=== PATIENT | female | born 1940 | race Caucasian/White ===

== ENCOUNTER 2017-05-08 16:28 | Inpatient (IN) ==
[2017-05-08] MEDS ORDERED: SODIUM CHLORIDE 0.9% 1,000 ML IV STA (16:50)
--- NOTE | 2017-05-08 17:30 | Emergency Department Note ---
Arrival - Arrival Chief Complaint: Abdominal / Flank Pain Stated Complaint: NAUSEATED,DIZZINESS,FEVER ED Nursing Triage Note: C/o N/V-onset last week. Also c/o generalized abd pain. Family reports that patient has had a fever for the past 2 days. Mode of Arrival: Wheelchair Limitations: No Limitations Source: Patient, Family, RN Notes Reviewed Time Seen by Provider: 05/08/17 17:08 - History of Present Illness HPI Narrative: The patient complains of diffuse abdominal pain and nausea which started around 10 days ago, after a fall. She fractured a vertebrae and had kyphoplasty for this yesterday. She continues to have this constant, cramping, diffuse abdominal pain. Yesterday she also developed some vomiting and has vomited 6-7 times. She has also had decreased food and fluid intake. She had a temperature of 100 yesterday and today. She notes that food causes increased burning and nausea. She has had similar symptoms in the past with diverticulitis. She has been having some constipation lately. Her last bowel movement was last night after taking a laxative. She denies diarrhea, dysuria, hematuria. She complains of a severe headache today. Date of Last Menstrual Period: hysterectomy Allergies/Adverse Reactions: Allergies Allergy/AdvReac Type Severity Reaction Status Date / Time Penicillins Allergy Intermediate Rash/Nausea Verified 06/09/16 15:34 Home Medications: Home Medications Medication Instructions Recorded Confirmed Type Citalopram [CeleXA] 40 mg PO DAILY 05/08/17 05/08/17 History Cyclobenzaprine [Flexeril] 10 mg PO BEDTIME PRN 05/08/17 05/08/17 History Hydrocodone/Acetaminophen [[place] 1 each PO TID PRN 05/08/17 05/08/17 History 10-325 Tablet] Levothyroxine Tab [Synthroid Tab] 25 mcg PO DAILY@0700 05/08/17 05/08/17 History Losartan Potassium [Cozaar] 100 mg PO QAM 05/08/17 05/08/17 History Meloxicam [Mobic] 7.5 mg PO DAILY 05/08/17 05/08/17 History Omeprazole 40 mg PO DAILY 05/08/17 05/08/17 History amLODIPine [Norvasc] 5 mg PO DAILY 05/08/17 05/08/17 History clonazePAM [Klonopin] 1 mg PO DAILY PRN 05/08/17 05/08/17 History Review of System - Review of System 12 point system: reviewed and no additional remarkable complaints except as stated - Review of System Constitutional: Present: fever, weakness Head/Ears/Nose/Throat: Absent: nasal drainage, sore throat Respiratory: Absent: cough, respiratory distress, wheezing Cardiovascular: Absent: chest pain Gastrointestinal: Present: abdominal pain, nausea, vomiting, constipation. Absent: diarrhea, hematemesis, melena, hematochezia Genitourinary female: Absent: dysuria, frequency, hematuria Musculoskeletal: Present: back pain Medical,Surgical,& Family Hx - Medical History Cardio: History of: Hypertension Psychological: History of: Anxiety Disorders, Depression HEENT: History of: Dental Problems (PARTIAL) Endocrine: History of: Thyroid Disorder Rheumatology: History of;: Rheumatological Problems Genitourinary: History of: Bladder Problem (FEELS AT TIMES DOES NOT EMPTY BLADDER) Gastrointestinal: History of: Diverticulitis/ Diverticulosis Musculoskeletal: History of: Back/Neck Problems, Osteoporosis Reproductive: History of: Endometriosis Other: History of: Anaphylaxis (IVP DYE -) - Surgical History HEENT Surgeries: Surgical HX of: Tonsilectomy & Adenoidectomy Abdominal Surgeries: Surgical HX of: Colonoscopy Reproductive Surgeries: Surgical HX of;: Breast Surgery (IMPLANTS), Hysterectomy Orthopedic Surgeries: Surgical HX of;: Orthopedic Surgery (BACK SURGERY NECK SURGERY X2 R LEG) - Family History Family History: Reports;: Family Diabetes (MOM), Family Hypertension (BROTHER) - Social History Smoking Status: Never smoker Frequency of Alcohol Use: None Type of Drug Use: None Exam Physical Examination: GENERAL: Alert. No acute distress. HEENT: Normocephalic and atraumatic. There is no nasal drainage. No pharyngeal erythema or exudate. NECK: Normal inspection. Supple. No lymphadenopathy or meningismus. LUNGS: No respiratory distress. Clear to auscultation bilaterally, no wheezes, rales or rhonchi. HEART: Regular rate and rhythm. ABDOMEN: Soft, nondistended with normal bowel sounds. Mild diffuse abdominal tenderness, more pronounced in the right lower quadrant. No guarding or rebound. BACK: Normal inspection. SKIN: Color normal. Warm and dry. EXTREMITIES: Nontender. Normal range of motion. No pedal edema. NEUROLOGICAL/PSYCHIATRIC: Alert and oriented -3 with normal mood and affect. Cranial nerves normal. No motor or sensory deficit. Vital Signs: Vital Signs Temperature 96.8 F L 05/08/17 17:30 Pulse Rate 65 05/08/17 18:30 Respiratory Rate 18 05/08/17 18:30 Blood Pressure 157/67 05/08/17 18:30 O2 Sat by Pulse Oximetry 98 05/08/17 18:30 Course - Reevaluation(s) Reevaluation #1: The patient has remained stable in the ER. She was initially hypotensive at 82/ 51. After hydration with 1 L of normal saline, she is now up to 133/79. Her CT shows a moderate pericardial effusion. I think it likely that she has a viral illness that is causing her fever and effusion. It is not clear if that is related to the abdominal pain and the vomiting. Given her age, hypotension on presentation, dehydration and pericardial effusion, I think it best to admit her for observation and probably a cardiology consult. I have discussed this patient with the hospitalist service who will see her and admit. Time: 21:22 Results - Labs CBC & BMP: 05/08/17 17:07 05/08/17 17:07 Lab Results: I have reviewed the patients labs Labs: Laboratory Tests 05/08/17 05/08/17 05/08/17 17:07 17:07 17:30 Total Bilirubin 0.60 AST 16 ALT 18 Alkaline Phosphatase 102 Amylase 30 Lipase 114.0 Urine RBC 1 Urine WBC 1 Urine Bacteria Occasional Ur Culture Indicated? Not indicated - Impressions Chest x-ray shows no acute cardiopulmonary abnormality. CT of the abdomen Impression: Moderate pericardial effusion. No other evidence of abnormality demonstrated Disposition Clinical Impression: Abdominal pain, Vomiting, Fever, Dehydration, Hypotension, Pericardial effusion Case discussed with: patient Disposition: Still a Patient Time of Disposition: 21:26
--- NOTE | 2017-05-08 17:37 | XRay Report ---
XR chest 1V portable Indication: Fever Comparison: 09 June 2016 Findings: The heart and mediastinum are normal in size and configuration. The pulmonary vascularity is normal in caliber. No lung infiltrates, effusions, pneumothorax or other abnormality is demonstrated. Impression: No acute cardiopulmonary findings. PROCEDURE INTERPRETED AT [facility] DEPARTMENT OF RADIOLOGY Final Report Signed by: Dr. Santosh Antunez
[2017-05-08 17:38] LABS: Basophils # 0.1 10*3/uL (0.0-0.2); Basophils % 0.6 % (0.0-0.8); Eosinophils % 0.1 % (0.00-10.9); Hematocrit 40.6 VOL% (35.7-47.0); Immature Granulocytes % 0.4 %; Immature Granulocytes Absolute 0.04 #; Lymphocytes # 1.2 10*3/uL (1.4-4.0); Lymphocytes % 12.2 % (21.3-54.2); Mean Corpuscular HGB Conc 34.5 GM/DL (32-36); Mean Corpuscular Hemoglobin 31 PG (27-34); Monocytes # 0.6 10*3/uL (0.11-0.8); Monocytes % 6.3 % (1.7-12.7); Neutrophils # 7.8 10*3/uL (1.4-7.4); Neutrophils % 80.4 % (38.7-73.9); Platelet Count 324 T/CUMM (130-400); Red Blood Count 4.51 MC/CUMM (3.8-5.5); Red Cell Distribution Width 12.6 % (9.3-17.3); White Blood Count 9.7 T/CUMM (4-12)
[2017-05-08 17:43] LABS: Amorphous Crystals,Urine Occasional /HPF (Few); Apearance,Urine CLOUDY (Clear); Bacteria,Urine Occasional /HPF (Few); Bilirubin,Urine Negative (Negative); Blood, Urine Negative (Negative); Glucose,Urine (UA) Negative (Negative); Ketones,Urine 5 mg/dL (Negative); Mucus,Urine Occasional /LPF (Occasional); Nitrite,Urine Negative (Negative); Protein,Urine Negative; RBC,Urine 1 /HPF (0-4); Squamous Epithelial Cell,Urine Occasional /HPF (0-10); Urine Color Yellow (Yellow); Urine Specific Gravity 1.008 (1.001-1.035); Urine Urobilinogen < 2.0 EU/DL (0.2-1.0); WBC,Urine 1 /HPF (0-6)
[2017-05-08] MEDS ORDERED: ONDANSETRON 4 MG/2 ML VIAL IV STA (17:47)
[2017-05-08] MEDS ORDERED: ONDANSETRON 4 MG/2 ML VIAL ONE ×2 (17:47→22:26)
[2017-05-08 17:49] LABS: Albumin 3.7 G/DL (3.4-5.0); Bilirubin,Total 0.6 MG/DL (0.2-1.0); Calcium 9.4 MG/DL (8.5-10.1); Osmolality,Calculated 268.2 MOS/KG (273-304); Potassium 3.5 MMOL/L (3.5-5.1); Total Protein 6.9 G/DL (6.4-8.3)
--- NOTE | 2017-05-08 20:14 | CT Report ---
CT abdomen pelvis Indication: Abdominal pain, fever vomiting Comparison: None available Technique: Axial CT imaging of the abdomen and pelvis is performed with intravenous and oral contrast. Contrast dose is 100 cc of Omnipaque 350. Findings: Moderate pericardial effusions present. Otherwise cardiac and lung bases are within normal limits. CT abdomen: The liver spleen pancreas and adrenal glands are normal in size and enhancement. No evidence of focal lesion is demonstrated in these solid organs. Kidneys are normal in size and enhancement. No evidence of hydronephrosis or nephrolithiasis is seen. The bowel caliber is normal and no wall thickening or adjacent inflammatory change is seen. No evidence of free fluid or free air is present. CT pelvis: The pelvic bowel appears within normal limits. Bladder shows no evidence of abnormality. The uterus and ovaries are not identified. Impression: Moderate pericardial effusion. No other evidence of abnormality demonstrated This CT exam was performed using one or more the following dose reduction techniques: Automated exposure control, adjustment of the MA and/or KV according to patient size, or use of iterative reconstruction technique. PROCEDURE INTERPRETED AT [facility] DEPARTMENT OF RADIOLOGY Final Report Signed by: Dr. Santosh Antunez
[2017-05-08] MEDS ORDERED: ACETAMINOPHEN 325 MG TABLET PO PRN (22:25)
[2017-05-08] MEDS ORDERED: MORPHINE 2 MG/1 ML SYRINGE ONE (22:26)
[2017-05-08] MEDS ORDERED: ONDANSETRON 4 MG/2 ML VIAL IV ONE (22:28)
[2017-05-08] MEDS ORDERED: MORPHINE 2 MG/1 ML SYRINGE IV ONE (22:28)
[2017-05-08] MEDS ORDERED: SODIUM PHOSPHATE ENEMA 133 ML BOTTLE RECTAL ONE (22:31)
[2017-05-08] MEDS ORDERED: CYCLOBENZAPRINE 10 MG TABLET PO PRN (22:35)
[2017-05-08] MEDS ORDERED: clonazePAM 0.5 MG TABLET PO PRN (22:35)
[2017-05-08] MEDS: SODIUM CHLORIDE 0.9% 1,000 ML IV SCH (23:29)
[2017-05-09] MEDS ORDERED: PROMETHAZINE INJ 12.5 MG in SODIUM CHLORIDE 0.9% 50 ML IV PRN (00:56)
[2017-05-09] MEDS: ENOXAPARIN 30 MG/0.3 ML SYRINGE SUBCUT SCH ×2 (01:01→08:56)
[2017-05-09] MEDS: ALUMINUM/MAGNES/SIMETH MAX STR 30 ML UDCUP PO PRN ×3 (04:50→16:53)
--- NOTE | 2017-05-09 04:57 | Hospitalist History & Physical ---
Assessment and Plan - Time spent with patient Time spent with patient: Greater than 30 minutes (1) Nausea & vomiting Status: Acute Assessment and plan: Admit to hospitalist services. NS bolus given in ED. Continue hydration with NS at 75 ml/hr. Zofran 4 mg IV Q4 PRN. Clear liquid diet; advance as tolerated. Recheck CBC and BMP in am. Obtain magnesium in am. Current Visit: Yes (2) Abdominal pain Status: Acute Assessment and plan: Possibly secondary to constipation. Fleets enema. Dulcolax 10 mg PO QHS. Miralax 17 grams PO daily. Current Visit: Yes (3) Pericardial effusion Status: Acute Assessment and plan: CT abdomen/pelvis showed a moderate pericardial effusion. Obtain Echo. Consult cardiology if any abnormality on echo. Current Visit: Yes (4) Hypotension Status: Acute Assessment and plan: Initial BP in the ED was 82/51. A NS bolus was given and her BP responded well, increasing to 119/62. Likely related to fluid volume loss. Continue hydration with NS at 75 ml/hr. Current Visit: Yes (5) Hyperglycemia Status: Acute Assessment and plan: Patient denies any history of diabetes. Obtain A1c in am. Current Visit: Yes (6) Hypothyroidism Status: Acute Assessment and plan: Continue home dose of synthroid. Current Visit: Yes (7) HTN (hypertension) Status: Chronic Assessment and plan: Continue home BP meds. Current Visit: No (8) DVT prophylaxis Status: Acute Assessment and plan: Lovenox 40 mg SQ daily. Current Visit: Yes History of Present Illness Chief complaint: Nausea, vomiting, abdominal pain History of present illness: Ms. Riley is a 77 year old female with a past medical history of anxiety, depression, chronic neck pain, hypertension, and hypothyroidism who presented to the ED [facility] with complaints of abdominal pain and nausea x 7-10 days and vomiting x 2 days. She reports falling about 10 days ago, after which she immediately became nauseated. Nausea has been continuous and has persisted with vomiting developing over the last 2 days. She had a lumbar vertebrae fracture for which she had kyphoplasty performed on of this week. She began vomiting just before the kyphoplasty and it has continued since with any oral intake. Additionally, she reports that she has had trouble with constipation, having only one bowel movement over the last 7 days. She takes [place] 10-325 mg TID PRN for chronic neck pain. CT in the ED was negative for any acute abdominal process, however, it did show a moderate pericardial effusion. Labs were mostly unremarkable except for Na 134 and Blood glucose 140. Currently, she is lying in bed with ongoing nausea and no vomiting. Hospitalist services were consulted, and the patient will be admitted for further evaluation and treatment. Home medications were reviewed and reconciled. This patient is a full code. Home Medications Medication Instructions Recorded Confirmed Type Citalopram [CeleXA] 40 mg PO DAILY 05/08/17 05/08/17 History Cyclobenzaprine [Flexeril] 10 mg PO BEDTIME PRN 05/08/17 05/08/17 History Hydrocodone/Acetaminophen [[place] 1 each PO TID PRN 05/08/17 05/08/17 History 10-325 Tablet] Levothyroxine Tab [Synthroid Tab] 25 mcg PO DAILY@0700 05/08/17 05/08/17 History Losartan Potassium [Cozaar] 100 mg PO QAM 05/08/17 05/08/17 History Meloxicam [Mobic] 7.5 mg PO DAILY 05/08/17 05/08/17 History Omeprazole 40 mg PO DAILY 05/08/17 05/08/17 History amLODIPine [Norvasc] 5 mg PO DAILY 05/08/17 05/08/17 History clonazePAM [Klonopin] 1 mg PO DAILY PRN 05/08/17 05/08/17 History Allergies Allergy/AdvReac Type Severity Reaction Status Date / Time Penicillins Allergy Intermediate Rash/Nausea Verified 06/09/16 15:34 Medical,Surgical,& Family Hx - Medical History Cardio: History of: Hypertension Psychological: History of: Anxiety Disorders, Depression HEENT: History of: Dental Problems (PARTIAL) Endocrine: History of: Thyroid Disorder Rheumatology: History of;: Rheumatological Problems Genitourinary: History of: Bladder Problem (FEELS AT TIMES DOES NOT EMPTY BLADDER) Gastrointestinal: History of: Diverticulitis/ Diverticulosis Musculoskeletal: History of: Back/Neck Problems, Osteoporosis Reproductive: History of: Endometriosis Other: History of: Anaphylaxis (IVP DYE -) - Surgical History HEENT Surgeries: Surgical HX of: Tonsilectomy & Adenoidectomy Abdominal Surgeries: Surgical HX of: Colonoscopy Reproductive Surgeries: Surgical HX of;: Breast Surgery (IMPLANTS), Hysterectomy Orthopedic Surgeries: Surgical HX of;: Orthopedic Surgery (BACK SURGERY NECK SURGERY X2 R LEG) - Family History Family History: Reports;: Family Diabetes (MOM), Family Hypertension (BROTHER) - Social History Smoking Status: Never smoker Have you smoked in the last 12 months: No Frequency of Alcohol Use: Occasionally Type of Drug Use: None Marital Status: Lives With:: Significant Other Functional capacity: independent ambulation 12 point system: reviewed and no additional remarkable complaints except as stated - Constitutional Constitutional: Absent: anorexia, fever(s), weakness - EENT Eyes: Absent: blurry vision, diplopia, loss of vision Ears: Absent: decreased hearing, ear discharge, ear pain Nose, mouth and throat: Absent: headache(s), nasal congestion, sore throat - Cardiovascular Cardiovascular: Absent: chest pain at rest, chest pain with activity, dyspnea, edema, orthopnea, palpitations - Respiratory Respiratory: Absent: cough, dyspnea, wheezing - Gastrointestinal Gastrointestinal: Present: abdominal pain, constipation, nausea, vomiting. Absent: diarrhea - Genitourinary Genitourinary: Absent: dysuria, flank pain, urinary frequency - Musculoskeletal Musculoskeletal: Absent: arthralgias, joint swelling, muscle weakness, myalgias - Neurological Neurological: Absent: confusion, dizziness, numbness, paresthesias, syncope - Psychiatric Psychiatric: Absent: anxiety, depression - Endocrine Endocrine: Absent: cold intolerance, polydipsia, polyphagia - Hematologic/Lymphatic Hematologic/Lymphatic: Absent: easy bleeding, easy bruising Exam - Constitutional Vitals: Period Temp Pulse Resp BP Sys/Stewart Pulse Ox Last 24 Hr 96.7 F-96.8 F 65-89 18-20 82-157/51-76 96-98 Exam: Constitutional System: Afebrile. Awake, alert and oriented x 3. No distress. No tremulousness. Head: Normocephalic, atraumatic. Ears, Nose and Throat System: No pain or tenderness. No epistaxis or discharge Eyes System: Pupils equal, round, and reactive. Extraocular muscles intact. Neck: Supple, without adenopathy, No jugular venous distention. No thyromegaly, neck mass, or prior surgery apparent. Respiratory System: Chest clear to auscultation. Cardiovascular System: Heart with regular rate and rhythm. No murmur. GI System: Abdomen soft, RLQ, RUQ and LLQ tenderness. Hyper active bowel sounds present. Musculoskeletal System: limbs with no pedal edema. Full distal pulses. Normal capillary refill. Neurological System: No discernable sensory deficit. No aphasia Psychiatric System: Conversation is rational Results - Labs CBC & BMP: 05/08/17 17:07 05/08/17 17:07 Lab Results: I have reviewed the past 24 hour labs - Diagnostic Findings Procedure: Chest x-ray: report reviewed by me, CT Abdomen and Pelvis: report reviewed by me
[2017-05-09 05:18] LABS: Basophils # 0.1 10*3/uL (0.0-0.2); Basophils % 0.6 % (0.0-0.8); Eosinophils % 0.3 % (0.00-10.9); Hematocrit 39.9 VOL% (35.7-47.0); Immature Granulocytes % 0.2 %; Immature Granulocytes Absolute 0.02 #; Lymphocytes # 1.3 10*3/uL (1.4-4.0); Lymphocytes % 11.7 % (21.3-54.2); Mean Corpuscular HGB Conc 35.1 GM/DL (32-36); Mean Corpuscular Hemoglobin 31 PG (27-34); Mean Corpuscular Volume 89.1 FL (87-102); Mean Platelet Volume 10.8 FL (9.6-12.0); Monocytes # 0.5 10*3/uL (0.11-0.8); Monocytes % 4.5 % (1.7-12.7); Neutrophils # 8.9 10*3/uL (1.4-7.4); Neutrophils % 82.7 % (38.7-73.9); Platelet Count 306 T/CUMM (130-400); Red Blood Count 4.48 MC/CUMM (3.8-5.5); Red Cell Distribution Width 12.5 % (9.3-17.3); White Blood Count 10.8 T/CUMM (4-12)
[2017-05-09 05:49] LABS: Calcium 8.6 MG/DL (8.5-10.1); Magnesium 2.1 MG/DL (1.8-2.4)
[2017-05-09] MEDS: LEVOTHYROXINE 25 MCG TABLET PO SCH (08:55)
[2017-05-09] MEDS: LOSARTAN 50 MG TABLET PO SCH (08:56)
[2017-05-09] MEDS: CITALOPRAM 40 MG TABLET PO SCH (08:56)
[2017-05-09] MEDS: amLODIPine 5 MG TABLET PO SCH (08:57)
[2017-05-09] MEDS: MELOXICAM 7.5 MG TABLET PO SCH (08:57)
[2017-05-09] MEDS: PANTOPRAZOLE 40 MG TABLET PO SCH (08:58)
[2017-05-09] MEDS: POTASSIUM CHLORIDE 20 MEQ TABLET PO PRN ×3 (08:58→13:31)
[2017-05-09] MEDS: POLYETHYLENE GLYCOL POWDER 17 GM PACK PO SCH (08:59)
[2017-05-09] MEDS: ONDANSETRON 4 MG/2 ML VIAL IV PRN ×2 (09:11→16:54)
--- NOTE | 2017-05-09 11:48 | DUMMY REPORT TO COMPLETE ORDER ---
See report scanned to EMR
[2017-05-09] MEDS: SODIUM CHLORIDE 0.9% 1,000 ML IV SCH (13:31)
[2017-05-09] MEDS ORDERED: BISACODYL 5 MG TABLET PO SCH (21:00)
[2017-05-10] MEDS: SODIUM CHLORIDE 0.9% 1,000 ML IV SCH ×2 (02:55→15:00)
[2017-05-10] MEDS: ONDANSETRON 4 MG/2 ML VIAL IV PRN ×4 (03:09→21:13)
[2017-05-10 03:39] LABS: Basophils % 0.5 % (0.0-0.8); Eosinophils % 0.2 % (0.00-10.9); Hematocrit 41.8 VOL% (35.7-47.0); Hemoglobin 14.7 GM/DL (12.0-16.0); Immature Granulocytes % 0.2 %; Immature Granulocytes Absolute 0.02 #; Lymphocytes # 1.5 10*3/uL (1.4-4.0); Lymphocytes % 17.4 % (21.3-54.2); Mean Corpuscular HGB Conc 35.2 GM/DL (32-36); Mean Corpuscular Hemoglobin 31 PG (27-34); Mean Corpuscular Volume 89.3 FL (87-102); Mean Platelet Volume 11.1 FL (9.6-12.0); Monocytes # 0.8 10*3/uL (0.11-0.8); Monocytes % 9.6 % (1.7-12.7); Neutrophils # 6.1 10*3/uL (1.4-7.4); Neutrophils % 72.1 % (38.7-73.9); Platelet Count 325 T/CUMM (130-400); Red Blood Count 4.68 MC/CUMM (3.8-5.5); Red Cell Distribution Width 12.3 % (9.3-17.3); White Blood Count 8.5 T/CUMM (4-12)
[2017-05-10 04:01] LABS: Calcium 9.2 MG/DL (8.5-10.1); Magnesium 2.4 MG/DL (1.8-2.4); Osmolality,Calculated 268.1 MOS/KG (273-304); Potassium 3.7 MMOL/L (3.5-5.1)
[2017-05-10] MEDS: CITALOPRAM 40 MG TABLET PO SCH (09:44)
[2017-05-10] MEDS: POLYETHYLENE GLYCOL POWDER 17 GM PACK PO SCH (09:44)
[2017-05-10] MEDS: LOSARTAN 50 MG TABLET PO SCH (09:44)
[2017-05-10] MEDS: LEVOTHYROXINE 25 MCG TABLET PO SCH (09:44)
[2017-05-10] MEDS: amLODIPine 5 MG TABLET PO SCH (09:44)
[2017-05-10] MEDS: MELOXICAM 7.5 MG TABLET PO SCH (09:44)
[2017-05-10] MEDS: ENOXAPARIN 30 MG/0.3 ML SYRINGE SUBCUT SCH (09:44)
[2017-05-10] MEDS: PANTOPRAZOLE 40 MG TABLET PO SCH ×2 (09:47→21:14)
--- NOTE | 2017-05-10 10:33 | Hospitalist Progress Note ---
Assessment and Plan (1) Abdominal pain Status: Acute Assessment and plan: Described as burning She takes protonix daily, increase to BID Will also consult GI Current Visit: Yes (2) Hypotension Status: Resolved Current Visit: Yes (3) Pericardial effusion Status: Inactive Assessment and plan: CT read as pericardial effusion No pericardia effusion on echo Current Visit: Yes (4) Nausea & vomiting Status: Acute Assessment and plan: Zofran prn GI consult Current Visit: Yes (5) Hyperglycemia Status: Acute Current Visit: Yes Hospitalist: Subjective Interval history: No acute events overnight. Patient still reports abdominal burning and nausea. She is tolerating some liquids but still does not have an appetite. Exam - Constitutional Vitals: Period Temp Pulse Resp BP Sys/Stewart Pulse Ox Last 24 Hr 97.2 F-99.0 F 83-96 18-20 144-154/77-96 93-99 General appearance: normal weight - Head Head exam: Present: normocephalic, atraumatic - Eye Eye exam: Present: EOMI Pupils: Present: HARIS - ENT ENT exam: Present: normal exam - Neck Neck exam: Present: normal inspection - Respiratory Respiratory exam: Present: clear to auscultation bilaterally. Absent: rhonchi, wheezes - Cardiovascular Cardiovascular exam: Present: regular rate and rhythm - GI/Abdominal GI/Abdominal exam: Present: hypoactive bowel sounds, tenderness, soft. Absent: rebound - Extremities Exam Extremities exam: Present: normal inspection - Back Exam Back exam: Present: normal inspection - Neurological Exam Neurological exam: Present: alert, oriented X3 - Psychiatric Psychiatric exam: Present: normal affect, normal mood - Skin Skin exam: Present: warm, intact Results - Labs CBC & BMP: 05/10/17 03:01 05/10/17 03:01
--- NOTE | 2017-05-10 12:48 | Gastrointestinal Consult Note ---
Assessment and Plan (1) Epigastric abdominal pain Status: Acute Assessment and plan: This patient has burning epigastric pain in the face of Mobic this is likely to be due to erosive gastritis or peptic ulcer disease. She may also have developed Helicobacter pylori gastritis, nausea and vomiting from gastric cancer , gastroparesis, and/or functional dyspepsia. We will perform upper endoscopy tomorrow morning to better define the cause of the patient's nausea vomiting and pain. I doubt this will demonstrate a etiology for the diarrhea. May consider doing biopsies for celiac sprue if this area appears to be mildly inflamed. She is not having dysphagia and does not need dilation. We definitely need to discontinue the Mobic until we can see clearly what is happening in the stomach Current Visit: Yes (2) Nausea vomiting and diarrhea Status: Acute Assessment and plan: The patient is having nausea vomiting and diarrhea and this may be simply a gastroenteritis however it has been going on for the last 2 weeks which would tend to point against this etiology. She does not feel like she has got constipation but rather diarrhea and has responded very well to the MiraLAX previously given. We may hold off on giving further dosages until we evaluate the upper GI tract. We will continue to watch the patient's white blood cell count and see if this improves over time. Current Visit: Yes (3) Screening for colorectal cancer Status: Acute Assessment and plan: This patient has been previously scoped for the last 2 years at [facility] and I would like to obtain these old records for our evaluation. She may need a repeat colonoscopy anywhere between 4 and 9 years from now. Further recommendations post evaluation of their findings at that time. It sounds that the patient did not have any polyps obtained. Current Visit: Yes History of Present Illness Chief complaint: Nausea/vomiting/epigastric pain/NSAID use with diarrhea History of present illness: Ms. Riley is a 77 year old female who has a history of anxiety and depression as well as chronic neck pain hypertension hypothyroidism who states that approximately 2 weeks ago she started having this nausea and vomiting and a feeling like she is having epigastric pain with sharp burning noted that failed to respond to occasional use of Mylanta and did not respond to [place] either. During this period time the patient also suffered a fall directly onto her tailbone which resulted in a vertebral injury that required Dr. Mckeon to perform a back injection versus kyphoplasty (it is not clear from my discussion with the patient) which occurred on 05/07/17. This may have exacerbated the nausea. She states that this has been continuous and is associated with some reflux as well as vomiting but no coffee grounds have been seen. Patient had a CT scan which seemed to show a bit of constipation. Despite this she states that she if anything she is diarrhea about 2 or 4 times per day. She does also have a incidental moderate pericardial effusion of unclear significance. Given her arthritides will check a FINN level. Note that the patient has a normal hematocrit, white count, BUN/creatinine and normal liver function tests. She has not lost significant amount of weight. She states that she has been on Mobic for approximately 2 months but has not related this to the back pain/ nausea/vomiting. She was given some laxatives due to the CT scan findings but found these intolerable. She is not having slow bowel movements. She characterizes the abdominal pain is about a 8 out of 10 in intensity, with a sharp component to it. Home Medications Medication Instructions Recorded Confirmed Type Citalopram [CeleXA] 40 mg PO DAILY 05/08/17 05/08/17 History Cyclobenzaprine [Flexeril] 10 mg PO BEDTIME PRN 05/08/17 05/08/17 History Hydrocodone/Acetaminophen [[place] 1 each PO TID PRN 05/08/17 05/08/17 History 10-325 Tablet] Levothyroxine Tab [Synthroid Tab] 25 mcg PO DAILY@0700 05/08/17 05/08/17 History Losartan Potassium [Cozaar] 100 mg PO QAM 05/08/17 05/08/17 History Meloxicam [Mobic] 7.5 mg PO DAILY 05/08/17 05/08/17 History Omeprazole 40 mg PO DAILY 05/08/17 05/08/17 History amLODIPine [Norvasc] 5 mg PO DAILY 05/08/17 05/08/17 History clonazePAM [Klonopin] 1 mg PO DAILY PRN 05/08/17 05/08/17 History Allergies Allergy/AdvReac Type Severity Reaction Status Date / Time Penicillins Allergy Intermediate Rash/Nausea Verified 06/09/16 15:34 Medical,Surgical,& Family Hx - Medical History Cardio: History of: Hypertension Psychological: History of: Anxiety Disorders, Depression HEENT: History of: Dental Problems (PARTIAL) Endocrine: History of: Thyroid Disorder Rheumatology: History of;: Rheumatological Problems Genitourinary: History of: Bladder Problem (FEELS AT TIMES DOES NOT EMPTY BLADDER) Gastrointestinal: History of: Diverticulitis/ Diverticulosis Musculoskeletal: History of: Back/Neck Problems, Osteoporosis Reproductive: History of: Endometriosis Other: History of: Anaphylaxis (IVP DYE -) - Surgical History HEENT Surgeries: Surgical HX of: Tonsilectomy & Adenoidectomy Abdominal Surgeries: Surgical HX of: Colonoscopy Reproductive Surgeries: Surgical HX of;: Breast Surgery (IMPLANTS), Hysterectomy Orthopedic Surgeries: Surgical HX of;: Orthopedic Surgery (BACK SURGERY NECK SURGERY X2 R LEG) - Family History Family History: Reports;: Family Diabetes (MOM), Family Hypertension (BROTHER) - Social History Smoking Status: Never smoker Frequency of Alcohol Use: Occasionally Type of Drug Use: None Review of systems: Constitutional: Denies fever, chills, but the patient is positive for recent nausea, and vomiting Eyes: Denies dry eyes, and scleral icterus HENT: Occasional headaches Cardiovascular: Denies acute chest pain and claudication Respiratory: Denies shortness of breath, wheezing, and difficulty breathing, denies cough Gastrointestinal: As noted in the HPI Genitourinary: Denies dysuria and hematuria Neurologic: Denies vision loss, and loss of sensation Musculoskeletal: She does have some joint swelling, joint stiffness, and muscular weakness Psychiatric: She does complain of occasional depression and gary symptoms Heme-Lymph: Denies easy bruising, lymph node enlargement or tenderness, night sweats, excessive bleeding Allergies-immunologic: Denies pruritus and rhinorrhea Exam - Constitutional Vitals: Period Temp Pulse Resp BP Sys/Stewart Pulse Ox Last 24 Hr 97.2 F-99.0 F 83-96 18-20 144-170/77-96 93-99 Exam: Constitutional: Well-developed, well-nourished, alert, and in no acute distress Head and face: Head: Normocephalic atraumatic Eyes: Conjunctiva without injection, no gross scleral icterus, pupils equal and round bilaterally Ears: Intact to conversation in both ears Nose: External appearance is normal, nares patent Mouth: Oral mucous membranes moist without erythema dentition noted to be without erosion Neck: Normal appearance, no masses or tenderness, trachea midline Thyroid: Gland midline and appropriate size for age Respiratory: Normal respiratory effort, clear to auscultation without wheezes, rhonchi or rales Cardiovascular: Regular rate and rhythm, normal S1, S2, the exam is without rubs, murmurs or gallops. Gastrointestinal: Epigastric greater than bilateral lower quadrant tenderness to palpation, normal active bowel sounds, tone normal without rigidity or guarding, no masses present, no hepatomegaly, no spleen tip felt. Rectal exam showed yellow guaiac-negative stools, good tone, no external fissures or fistula Lymphatic: Neck without adenopathy, axilla without lymphadenopathy present Musculoskeletal: Right and left lower extremities without evidence of edema Skin and subcutaneous tissue: No rashes or ulcerations noted, normal skin turgor, digits and nails without clubbing/cyanosis/deformities. Neurologic: The patient is grossly oriented to person place and time, cranial nerves show tongue movements are normal with normal tongue extrusion midline, light touch sensation is intact. Psychiatric: No hallucinations or delusions are present, does not appear depressed Results - Labs CBC & BMP: 05/10/17 03:01 05/10/17 03:01
[2017-05-10] MEDS: LORazepam 2 MG/1 ML VIAL IV PRN ×2 (15:10→21:13)
[2017-05-11] MEDS: SODIUM CHLORIDE 0.9% 1,000 ML IV SCH ×2 (03:07→21:04)
[2017-05-11 06:27] LABS: Basophils # 0.1 10*3/uL (0.0-0.2); Basophils % 0.9 % (0.0-0.8); Eosinophils % 0.3 % (0.00-10.9); Hemoglobin 14.4 GM/DL (12.0-16.0); Immature Granulocytes % 0.2 %; Immature Granulocytes Absolute 0.02 #; Lymphocytes # 2.3 10*3/uL (1.4-4.0); Lymphocytes % 25.7 % (21.3-54.2); Mean Corpuscular Hemoglobin 32 PG (27-34); Mean Corpuscular Volume 87.7 FL (87-102); Mean Platelet Volume 10.5 FL (9.6-12.0); Monocytes # 0.8 10*3/uL (0.11-0.8); Neutrophils # 5.8 10*3/uL (1.4-7.4); Neutrophils % 63.9 % (38.7-73.9); Platelet Count 339 T/CUMM (130-400); Red Blood Count 4.56 MC/CUMM (3.8-5.5); Red Cell Distribution Width 12.1 % (9.3-17.3); White Blood Count 9.1 T/CUMM (4-12)
[2017-05-11 06:57] LABS: Magnesium 2.2 MG/DL (1.8-2.4); Osmolality,Calculated 266.2 MOS/KG (273-304); Potassium 3.1 MMOL/L (3.5-5.1)
[2017-05-11] MEDS: POTASSIUM CHLORIDE RIDER 10 MEQ in PREMIX 1 EACH IV PRN ×3 (07:35→09:44)
[2017-05-11] MEDS: ONDANSETRON 4 MG/2 ML VIAL IV PRN (09:39)
[2017-05-11] MEDS: LEVOTHYROXINE 25 MCG TABLET PO SCH (11:44)
[2017-05-11] MEDS: PANTOPRAZOLE 40 MG TABLET PO SCH ×2 (11:44→21:03)
[2017-05-11] MEDS ORDERED: PROPOFOL 200 MG/20 ML VIAL IV ONE (13:27)
[2017-05-11] MEDS ORDERED: LIDOCAINE 1% 5 ML VIAL ONE (13:27)
--- NOTE | 2017-05-11 13:42 | Operative Note ---
Date of procedure: 05/11/17 Pre-op diagnosis: Epigastric pain and nausea/vomiting Post-op diagnosis: other (Mild diffuse gastritis with a slight linear component but no other gross evidence of erosions or ulcerations in the stomach. Was some mild distal esophageal erythema without gross erosions in the esophagus or Cox's. 2 cm hiatal hernia noted) Procedure: PROCEDURE: Esophagogastroduodenoscopy (EGD) with cold biopsy for pathology REFERRING PHYSICIAN: Alla Avila MD INDICATIONS: Nausea/vomiting and epigastric pain The prior H&P was reviewed and interrim changes are as noted: No change from GI consultation yesterday ENDOSCOPIST: El Green MD ENDOSCOPE: Olympus Video 100 System upper endoscope ASA CLASS: 3 EXAM: CV: regular rate and rhythm respiratory: Clear without wheezes abdominal: active bowel sounds MEDICATION: Per nursing anesthesia protocol, see their notes PROCEDURE: After discussion of the potential risks and benefits of upper endoscopy, the informed consent was obtained. The patient was then placed in the left lateral decubitus position where sedation was achieved as noted above. Esophageal intubation was performed without difficulty, and the endoscope was advanced through the esophagus, stomach and duodenum. A slow withdrawal was then performed with retroflexion in the stomach for careful inspection of the incisura angularis, fundus and cardia. The scope was then returned to a neutral position and withdrawn through the esophagus. The patient tolerated the procedure well and without complication. BIOPSIES: Gastric antrum/body PHOTOGRAPHS: Obtained FINDINGS: Hypopharynx and Larynx: Normal Esohagoscopy Upper and middle thirds: Tortuous but normal Lower third moderate erythema 5 cm Esophogastric junctions: Moderate erythema, no gross evidence of stricturing erosions or ulceration Gastroscopy: Cardia/Fundus: 2 cm hiatal hernia Body: Mild diffuse gastritis, nonerosive Antrum and pylorus mild diffuse gastritis with slight linear component, no gross evidence of erosions or ulceration Duodenoscopy: Bulb normal-appearing Second and third portions: Normal-appearing IMPRESSION: Mild diffuse gastritis with a slight linear component but no other gross evidence of erosions or ulcerations in the stomach. Was some mild distal esophageal erythema without gross erosions in the esophagus or Cox' s. 2 cm hiatal hernia noted RECOMMENDATIONS: Follow up for biopsy results in 1-2 weeks by phone [phone] Continue anti-gastroesophageal reflux measures (avoid carbonated and acidic beverages, avoid eating within 2 hours of bedtime, avoid tight fitting clothing , and elevate the front bed posts 6 inches prior to sleeping. I am not sure if this is enough to explain the patient's severe nausea and vomiting, will obtain a gastric emptying study tomorrow, continue clears for the present time. El Green MD COPY TO: Alla Avila MD Anesthesia: MAC Surgeon / Physician: El Green Estimated blood loss: minimal Specimens: other (Gastric antrum/body) Condition: stable Disposition: post procedure unit (G.I. Suite) Results - Labs CBC & BMP: 05/11/17 06:03 05/11/17 10:20 Discharge Plan - Discharge Medications No Action amLODIPine [Norvasc] 5 mg PO DAILY Levothyroxine Tab [Synthroid Tab] 25 mcg PO DAILY@0700 Cyclobenzaprine [Flexeril] 10 mg PO BEDTIME PRN PRN Reason: MUSCLE SPASMS Omeprazole 40 mg PO DAILY Losartan Potassium [Cozaar] 100 mg PO QAM Citalopram [CeleXA] 40 mg PO DAILY Hydrocodone/Acetaminophen [[place] 10-325 Tablet] 1 each PO TID PRN PRN Reason: Pain clonazePAM [Klonopin] 1 mg PO DAILY PRN PRN Reason: Anxiety Meloxicam [Mobic] 7.5 mg PO DAILY - Follow Up or Referral - Forms/Instructions
--- NOTE | 2017-05-11 13:46 | Anesthesia Post-Op ---
Anesthesia Post OP - Post Ansesthetic Evaluation Patient seen in post op: Yes Resp: within normal limits CV: within normal limits Mental: within normal limits Temp: within normal limits [id number]-Ub-Yokvivlth: within normal limits Nausea and Vomiting: within normal limits Pain: within normal limits
--- NOTE | 2017-05-11 13:48 | Gastrointestinal Progress Note ---
Assessment and Plan (1) Epigastric abdominal pain Status: Acute Assessment and plan: This patient has burning epigastric pain in the face of Mobic this is likely to be due to erosive gastritis or peptic ulcer disease. She may also have developed Helicobacter pylori gastritis, nausea and vomiting from gastric cancer , gastroparesis, and/or functional dyspepsia. We will perform upper endoscopy tomorrow morning to better define the cause of the patient's nausea vomiting and pain. I doubt this will demonstrate a etiology for the diarrhea. May consider doing biopsies for celiac sprue if this area appears to be mildly inflamed. She is not having dysphagia and does not need dilation. We definitely need to discontinue the Mobic until we can see clearly what is happening in the stomach 05/11/17--Surprisingly, there was very little to be seen on upper endoscopy with no gross evidence of ulcerations or erosions in the stomach. I did not see a lot of retained food or fluid but will check this patient for gastric emptying study tomorrow to see if she would benefit from use of Reglan as an antinauseants. In the meantime we will see if this is a gastroenteritis and will go away on its own. We will try the patient on a cardiac diet just to see how she does. Current Visit: Yes (2) Nausea vomiting and diarrhea Status: Acute Assessment and plan: The patient is having nausea vomiting and diarrhea and this may be simply a gastroenteritis however it has been going on for the last 2 weeks which would tend to point against this etiology. She does not feel like she has got constipation but rather diarrhea and has responded very well to the MiraLAX previously given. We may hold off on giving further dosages until we evaluate the upper GI tract. We will continue to watch the patient's white blood cell count and see if this improves over time. 05/11/17--nausea and vomiting appeared to be no better, awaiting gastric emptying study to be done tomorrow morning after n.p.o. from midnight on. We will try the patient on a cardiac diet just to see if she was able to keep any of this down. Current Visit: Yes (3) Screening for colorectal cancer Status: Acute Assessment and plan: This patient has been previously scoped for the last 2 years at [facility] and I would like to obtain these old records for our evaluation. She may need a repeat colonoscopy anywhere between 4 and 9 years from now. Further recommendations post evaluation of their findings at that time. It sounds that the patient did not have any polyps obtained. 05/11/17--Awaiting reports from [facility].. Current Visit: Yes Gastroenterology - PN: Subj Interval history: The patient feels no better today. She is still fairly queasy from oral potassium she is gotten recently. Exam (Progress Note) - Constitutional Vitals: Period Temp Pulse Resp BP Sys/Stewart Pulse Ox Last 24 Hr 96.5 F-98.1 F 82-100 15-20 130-182/68-98 94-98 General appearance: mild distress - Eye Eye exam: Present: EOMI Pupils: Present: HARIS - Respiratory Respiratory exam: Present: clear to auscultation bilaterally. Absent: rhonchi, stridor, wheezes - Cardiovascular Cardiovascular exam: Present: regular rate and rhythm - GI/Abdominal GI/Abdominal exam: Present: normal bowel sounds, soft. Absent: distended, tenderness, rebound - Extremities Exam Extremities exam: Absent: edema - Neurological Exam Neurological exam: Present: alert, oriented X3 - Psychiatric Psychiatric exam: Present: normal affect, normal mood - Skin Skin exam: Present: warm Results - Labs CBC & BMP: 05/11/17 06:03 05/11/17 10:20
[2017-05-11] MEDS: amLODIPine 5 MG TABLET PO SCH (14:55)
[2017-05-11] MEDS: CITALOPRAM 40 MG TABLET PO SCH (14:55)
[2017-05-11] MEDS: LOSARTAN 50 MG TABLET PO SCH (14:55)
--- NOTE | 2017-05-11 15:44 | Hospitalist Progress Note ---
Assessment and Plan (1) Abdominal pain Status: Acute Assessment and plan: Described as burning Protonix BID GI managing EGD today with gastritis but no other acute process Plan is for gastric emptying study tomorrow Current Visit: Yes (2) Hypotension Status: Resolved Current Visit: Yes (3) Pericardial effusion Status: Inactive Assessment and plan: CT read as pericardial effusion No pericardia effusion on echo Current Visit: Yes (4) Nausea & vomiting Status: Acute Assessment and plan: Zofran prn GI assisting Current Visit: Yes (5) Hyperglycemia Status: Acute Current Visit: Yes Hospitalist: Subjective Interval history: No acute events overnight. This afternoon patient feels a little better, attempting to eat lunch. Exam - Constitutional Vitals: Period Temp Pulse Resp BP Sys/Stewart Pulse Ox Last 24 Hr 96.5 F-98.1 F 76-100 15-24 130-185/68-98 94-98 General appearance: normal weight - Head Head exam: Present: normocephalic, atraumatic - Eye Eye exam: Present: EOMI Pupils: Present: HARIS - ENT ENT exam: Present: normal exam - Neck Neck exam: Present: normal inspection - Respiratory Respiratory exam: Present: clear to auscultation bilaterally. Absent: rhonchi, wheezes - Cardiovascular Cardiovascular exam: Present: regular rate and rhythm - GI/Abdominal GI/Abdominal exam: Present: normal bowel sounds, tenderness, soft. Absent: rebound - Extremities Exam Extremities exam: Present: normal inspection - Back Exam Back exam: Present: normal inspection - Neurological Exam Neurological exam: Present: alert, oriented X3 - Psychiatric Psychiatric exam: Present: normal affect, normal mood - Skin Skin exam: Present: warm, intact Results - Labs CBC & BMP: 05/11/17 06:03 05/11/17 10:20
[2017-05-11] MEDS: LORazepam 2 MG/1 ML VIAL IV PRN ×2 (15:59→21:01)
[2017-05-12] MEDS: LORazepam 2 MG/1 ML VIAL IV PRN ×2 (01:53→22:21)
[2017-05-12 07:17] LABS: Basophils # 0.1 10*3/uL (0.0-0.2); Basophils % 1.1 % (0.0-0.8); Eosinophils # 0.1 10*3/uL (0.0-0.87); Eosinophils % 0.7 % (0.00-10.9); Hematocrit 39.8 VOL% (35.7-47.0); Hemoglobin 14.2 GM/DL (12.0-16.0); Immature Granulocytes % 0.3 %; Immature Granulocytes Absolute 0.02 #; Lymphocytes # 1.9 10*3/uL (1.4-4.0); Lymphocytes % 25.6 % (21.3-54.2); Mean Corpuscular HGB Conc 35.7 GM/DL (32-36); Mean Corpuscular Hemoglobin 31 PG (27-34); Mean Corpuscular Volume 87.9 FL (87-102); Mean Platelet Volume 11.3 FL (9.6-12.0); Monocytes # 0.7 10*3/uL (0.11-0.8); Monocytes % 9.7 % (1.7-12.7); Neutrophils # 4.8 10*3/uL (1.4-7.4); Neutrophils % 62.6 % (38.7-73.9); Platelet Count 329 T/CUMM (130-400); Red Blood Count 4.53 MC/CUMM (3.8-5.5); White Blood Count 7.6 T/CUMM (4-12)
[2017-05-12 07:45] LABS: Calcium 8.7 MG/DL (8.5-10.1); Magnesium 2.1 MG/DL (1.8-2.4); Osmolality,Calculated 268.1 MOS/KG (273-304); Potassium 3.1 MMOL/L (3.5-5.1)
[2017-05-12] MEDS: LEVOTHYROXINE 25 MCG TABLET PO SCH (10:00)
--- NOTE | 2017-05-12 10:24 | Pathology Report from [facility] ---
[facility] ACCESSION # : [id number] PATIENT NAME : Arnold Whitt ORDERING DR : El Green MD CLINICAL HX: Abdominal pain POST-OP DX: Gastritis SPECIMEN INFO: ABAD GROSS DESCRIPTION: The specimen is received in formalin labeled with the patients name and consists of a 0.6 x 0.3 cm aggregate of lewis tissue. Submitted in one cassette. DIAGNOSIS FOR ARNOLD WHITT: ABAD BIOPSIES: Chronic gastritis. H. pylori not seen on H&E or special stain with appropriate control. COLLECTED DATE: 05/11/2017 [facility] REPORT DATE: 05/12/2017 ELECTRONICALLY SIGNED BY: Lili Pickens M.D. 05/12/2017 - 8:53:49 [facility]
[2017-05-12] MEDS: ONDANSETRON 4 MG/2 ML VIAL IV PRN (12:37)
[2017-05-12] MEDS: amLODIPine 5 MG TABLET PO SCH (12:42)
[2017-05-12] MEDS: CITALOPRAM 40 MG TABLET PO SCH (12:42)
[2017-05-12] MEDS: PANTOPRAZOLE 40 MG TABLET PO SCH ×2 (12:42→22:20)
[2017-05-12] MEDS: LOSARTAN 50 MG TABLET PO SCH (12:42)
[2017-05-12] MEDS: POTASSIUM CHLORIDE RIDER 10 MEQ in PREMIX 1 EACH IV PRN ×4 (12:45→16:52)
--- NOTE | 2017-05-12 13:06 | Nuclear Medicine Report ---
Nuclear gastric emptying May 12, 2017 at 1:25 PM Indication: Nausea and vomiting Comparison images not available Technique: Planar imaging over the abdomen was performed at 1 hour intervals post administration of 500 uCi of technetium 99 sulfur colloid utilizing eggs with toast. Findings: K corrected time activity curve demonstrates 80% residual at 2 hours with 4% residual 4 hours. Findings fall within normal range. Impression: Normal gastric emptying study PROCEDURE INTERPRETED AT [facility] DEPARTMENT OF RADIOLOGY Final Report Signed by: Yaritza Babin MD
--- NOTE | 2017-05-12 14:38 | Gastrointestinal Progress Note ---
Assessment and Plan (1) Epigastric abdominal pain Status: Acute Assessment and plan: This patient has burning epigastric pain in the face of Mobic this is likely to be due to erosive gastritis or peptic ulcer disease. She may also have developed Helicobacter pylori gastritis, nausea and vomiting from gastric cancer , gastroparesis, and/or functional dyspepsia. We will perform upper endoscopy tomorrow morning to better define the cause of the patient's nausea vomiting and pain. I doubt this will demonstrate a etiology for the diarrhea. May consider doing biopsies for celiac sprue if this area appears to be mildly inflamed. She is not having dysphagia and does not need dilation. We definitely need to discontinue the Mobic until we can see clearly what is happening in the stomach 05/11/17--Surprisingly, there was very little to be seen on upper endoscopy with no gross evidence of ulcerations or erosions in the stomach. I did not see a lot of retained food or fluid but will check this patient for gastric emptying study tomorrow to see if she would benefit from use of Reglan as an antinauseants. In the meantime we will see if this is a gastroenteritis and will go away on its own. We will try the patient on a cardiac diet just to see how she does. 05/12/17--the patient's gastric emptying study did show a T1 half emptying time of 127 minutes which is prolonged. I am going to go ahead and start her on some Reglan 5 mg IV every 6 hours in addition to cutting back her hydrocodone dosage from 5 mg every 6 hours to 2.5 mg every 6 hours. Hopefully if the patient is able to tolerate her solid food better tomorrow she can be discharged to home. She will need to continue his taper under Dr. Mckeon care as an outpatient. Biopsies from the stomach failed to show any Helicobacter pylori. She will require daily proton pump and the patient. Current Visit: Yes (2) Nausea vomiting and diarrhea Status: Acute Assessment and plan: The patient is having nausea vomiting and diarrhea and this may be simply a gastroenteritis however it has been going on for the last 2 weeks which would tend to point against this etiology. She does not feel like she has got constipation but rather diarrhea and has responded very well to the MiraLAX previously given. We may hold off on giving further dosages until we evaluate the upper GI tract. We will continue to watch the patient's white blood cell count and see if this improves over time. 05/11/17--nausea and vomiting appeared to be no better, awaiting gastric emptying study to be done tomorrow morning after n.p.o. from midnight on. We will try the patient on a cardiac diet just to see if she was able to keep any of this down. 05/12/17--nausea and vomiting slightly better, patient was able to tolerate the gastric emptying study without vomiting. We will see if Reglan helps much. Current Visit: Yes (3) Screening for colorectal cancer Status: Acute Assessment and plan: This patient has been previously scoped for the last 2 years at [facility] and I would like to obtain these old records for our evaluation. She may need a repeat colonoscopy anywhere between 4 and 9 years from now. Further recommendations post evaluation of their findings at that time. It sounds that the patient did not have any polyps obtained. 05/11/17--Her colonoscopy was last performed on 06/21/14 and demonstrated pelvic adhesions and diverticulosis on the left side of the colon but otherwise no further polyp disease was noted. Patient was told to return again in 5 years given her prior history of polyp disease. The procedure was done by Dr. Winn over [facility]. Repeat will need to be in June 2019. Current Visit: Yes Gastroenterology - PN: Subj Interval history: Patient still feeling somewhat queasy. She is continuing to take narcotics even though she has had a kyphoplasty done on her fractured vertebrae by Dr. Mckeon. We have managed to wean her down during this admission from hydrocodone 10 mg twice daily to 5 mg twice daily. I think at this particular point we can probably lower her further to 2.5 mg every 6 hours as needed and perhaps be able to get away with only 5 mg of Reglan as a promotility agent and antinauseant agent. I told her about the side effects of potential tardive dyskinesia and she will be watching for these. Exam (Progress Note) - Constitutional Vitals: Period Temp Pulse Resp BP Sys/Stewart Pulse Ox Last 24 Hr 96.1 F-98.5 F 76-92 16-20 145-170/69-91 94-98 General appearance: mild distress - Head Head exam: Present: normocephalic - Eye Eye exam: Present: EOMI Pupils: Present: HARIS - Respiratory Respiratory exam: Present: clear to auscultation bilaterally. Absent: rhonchi, stridor, wheezes - Cardiovascular Cardiovascular exam: Present: regular rate and rhythm - GI/Abdominal GI/Abdominal exam: Present: normal bowel sounds, tenderness (Mostly in the epigastric region), soft. Absent: ascites, distended, guarding - Extremities Exam Extremities exam: Absent: edema Results - Labs CBC & BMP: 05/12/17 05:56 05/12/17 05:56
--- NOTE | 2017-05-12 15:46 | Hospitalist Progress Note ---
Assessment and Plan (1) Abdominal pain Status: Acute Assessment and plan: Described as burning Protonix BID GI managing EGD today with gastritis but no other acute process Gastric emptying study today, positive GI starting Reglan Current Visit: Yes (2) Hypotension Status: Resolved Current Visit: Yes (3) Pericardial effusion Status: Inactive Assessment and plan: CT read as pericardial effusion No pericardia effusion on echo Current Visit: Yes (4) Nausea & vomiting Status: Acute Assessment and plan: Zofran prn GI assisting Current Visit: Yes (5) Hyperglycemia Status: Acute Current Visit: Yes Hospitalist: Subjective Interval history: No acute events overnight. Less abdominal pain today. Has not eaten yet. Possible discharge tomorrow if tolerating a diet. Exam - Constitutional Vitals: Period Temp Pulse Resp BP Sys/Stewart Pulse Ox Last 24 Hr 96.1 F-98.5 F 76-92 16-20 145-170/69-91 94-98 General appearance: normal weight - Head Head exam: Present: normocephalic, atraumatic - Eye Eye exam: Present: EOMI Pupils: Present: HARIS - ENT ENT exam: Present: normal exam - Neck Neck exam: Present: normal inspection - Respiratory Respiratory exam: Present: clear to auscultation bilaterally. Absent: rhonchi, wheezes - Cardiovascular Cardiovascular exam: Present: regular rate and rhythm - GI/Abdominal GI/Abdominal exam: Present: normal bowel sounds, soft. Absent: tenderness, rebound - Extremities Exam Extremities exam: Present: normal inspection - Back Exam Back exam: Present: normal inspection - Neurological Exam Neurological exam: Present: alert, oriented X3 - Psychiatric Psychiatric exam: Present: normal affect, normal mood - Skin Skin exam: Present: warm, intact Results - Labs CBC & BMP: 05/12/17 05:56 05/12/17 05:56
[2017-05-12] MEDS: METOCLOPRAMIDE 10 MG/2 ML VIAL IV SCH (17:43)
[2017-05-12] MEDS: SODIUM CHLORIDE 0.9% 1,000 ML IV SCH (22:19)
[2017-05-13] MEDS: METOCLOPRAMIDE 10 MG/2 ML VIAL IV SCH ×4 (00:26→17:13)
[2017-05-13] MEDS: LEVOTHYROXINE 25 MCG TABLET PO SCH (07:45)
[2017-05-13 08:34] LABS: Calcium 8.7 MG/DL (8.5-10.1); Osmolality,Calculated 261.5 MOS/KG (273-304); Potassium 3.4 MMOL/L (3.5-5.1)
[2017-05-13] MEDS: LOSARTAN 50 MG TABLET PO SCH (08:52)
[2017-05-13] MEDS: PANTOPRAZOLE 40 MG TABLET PO SCH (08:53)
[2017-05-13] MEDS: CITALOPRAM 40 MG TABLET PO SCH (08:53)
[2017-05-13] MEDS ORDERED: amLODIPine 10 MG TABLET PO SCH (09:00)
[2017-05-13] MEDS: POTASSIUM CHLORIDE 20 MEQ TABLET PO PRN ×3 (09:30→13:44)
[2017-05-13] MEDS: ONDANSETRON 4 MG/2 ML VIAL IV PRN (09:30)
[2017-05-13] MEDS: SODIUM CHLORIDE 0.9% 1,000 ML IV SCH (11:18)
[2017-05-13 15:54] VITALS: BP 126/66
--- NOTE | 2017-05-13 17:38 | Discharge Summary ---
Hospital Course - Time spent with patient Time with patient DS: Less than 30 minutes Diagnosis - Discharge Diagnosis (1) Abdominal pain Status: Resolved (2) Hypotension Status: Resolved (3) Nausea & vomiting Status: Resolved (4) Hyperglycemia Status: Resolved Discharge Plan - Discharge Data Disposition: Disch To Home/Self Care Condition at Discharge: Stable Discharge Diet: advance to your usual diet Activity: increase activity as tolerated Hygiene: no restrictions Weight Bearing at Discharge: weight bear as tolerated Driving: no restrictions Contact your physician if you experience:: Nausea/Vomiting - Discharge Medications New amLODIPine [Norvasc] 10 mg PO DAILY #30 tablet HYDROcodone/ACETAMIN 5-325 [[place] 5-325] 0.5 tablet PO Q6H PRN #40 tablet PRN Reason: Pain Moderate (4-7) Metoclopramide Tab [Reglan Tab] 5 mg PO ACHS #120 tablet Continue Levothyroxine Tab [Synthroid Tab] 25 mcg PO DAILY@0700 Cyclobenzaprine [Flexeril] 10 mg PO BEDTIME PRN PRN Reason: MUSCLE SPASMS Omeprazole 40 mg PO DAILY Losartan Potassium [Cozaar] 100 mg PO QAM Citalopram [CeleXA] 40 mg PO DAILY clonazePAM [Klonopin] 1 mg PO DAILY PRN PRN Reason: Anxiety Discontinued amLODIPine [Norvasc] 5 mg PO DAILY Hydrocodone/Acetaminophen [[place] 10-325 Tablet] 1 each PO TID PRN PRN Reason: Pain Meloxicam [Mobic] 7.5 mg PO DAILY - Follow Up or Referral - Forms/Instructions Exam - Constitutional Vitals: Period Temp Pulse Resp BP Sys/Stewart Pulse Ox Last 24 Hr 97.4 F-98.0 F 71-93 18-20 113-158/65-83 95-98 General appearance: normal weight - Head Head exam: Present: normocephalic, atraumatic - Eye Eye exam: Present: EOMI Pupils: Present: HARIS - ENT ENT exam: Present: normal exam - Neck Neck exam: Present: normal inspection - Respiratory Respiratory exam: Present: clear to auscultation bilaterally. Absent: rhonchi, wheezes - Cardiovascular Cardiovascular exam: Present: regular rate and rhythm - GI/Abdominal GI/Abdominal exam: Present: normal bowel sounds, soft. Absent: tenderness, rebound - Extremities Exam Extremities exam: Present: normal inspection - Back Exam Back exam: Present: normal inspection - Neurological Exam Neurological exam: Present: alert, oriented X3 - Psychiatric Psychiatric exam: Present: normal affect, normal mood - Skin Skin exam: Present: warm, intact Discharge Results Procedures and tests throughout hospitalization: Pending Orders 05/08/17 17:50 Blood Culture Stat 05/13/17 19:44 Potassium Routine Labs on day of discharge: Labs from last 24 hours 05/13/17 07:11 Sodium 132 L Potassium 3.4 L Chloride 97 L Carbon Dioxide 30 Anion Gap 8.4 BUN 8 Creatinine 0.60 GFR Calculation 88 BUN/Creatinine Ratio 13.00 Glucose 107 H Calculated Osmolality 261.5 L Calcium 8.7 Magnesium 2.0 Preliminary micro results at discharge 05/08/17 17:50 Blood Culture - Preliminary Blood No growth at 3 days 05/08/17 17:50 Blood Culture - Preliminary Blood No growth at 3 days DS: Provider Date of admission: 05/11/17 14:09 Primary care physician: Cas Brewer DO Attending physician on admission: Dillon Arenas MD Consults: 05/10/17 10:04 Consult to Physician [CONS] Routine Comment: abdominal pain and burning, unrelenting nausea Consulting Provider: El Green Person Notified: dr. green Date Notified: 05/10/17 Time Notified: 11:03 05/10/17 12:36 Consult to Anesthesiology [CONS] Routine Consulting Provider: Reason for Anesthesiology: Pre-op Clearance Discharging clinician: Alla Avila MD
--- NOTE | 2017-05-13 17:59 | Gastrointestinal Progress Note ---
Assessment and Plan (1) Epigastric abdominal pain Status: Acute Assessment and plan: This patient has burning epigastric pain in the face of Mobic this is likely to be due to erosive gastritis or peptic ulcer disease. She may also have developed Helicobacter pylori gastritis, nausea and vomiting from gastric cancer , gastroparesis, and/or functional dyspepsia. We will perform upper endoscopy tomorrow morning to better define the cause of the patient's nausea vomiting and pain. I doubt this will demonstrate a etiology for the diarrhea. May consider doing biopsies for celiac sprue if this area appears to be mildly inflamed. She is not having dysphagia and does not need dilation. We definitely need to discontinue the Mobic until we can see clearly what is happening in the stomach 05/11/17--Surprisingly, there was very little to be seen on upper endoscopy with no gross evidence of ulcerations or erosions in the stomach. I did not see a lot of retained food or fluid but will check this patient for gastric emptying study tomorrow to see if she would benefit from use of Reglan as an antinauseants. In the meantime we will see if this is a gastroenteritis and will go away on its own. We will try the patient on a cardiac diet just to see how she does. 05/12/17--the patient's gastric emptying study did show a T1 half emptying time of 127 minutes which is prolonged. I am going to go ahead and start her on some Reglan 5 mg IV every 6 hours in addition to cutting back her hydrocodone dosage from 5 mg every 6 hours to 2.5 mg every 6 hours. Hopefully if the patient is able to tolerate her solid food better tomorrow she can be discharged to home. She will need to continue his taper under Dr. Mckeon care as an outpatient. Biopsies from the stomach failed to show any Helicobacter pylori. She will require daily proton pump and the patient. 05/13/17--The patient is not having any tardive dyskinesia side effects with the Reglan thus far. She is ready to be discharged at this time. I have written her prescription for the Reglan elixir 5-10 mg p.o. q. before meals and nightly along with Protonix 40 mg prior to suppertime. She is welcome to follow-up in my office as needed. I have given her a card with my number. Current Visit: Yes (2) Nausea vomiting and diarrhea Status: Acute Assessment and plan: The patient is having nausea vomiting and diarrhea and this may be simply a gastroenteritis however it has been going on for the last 2 weeks which would tend to point against this etiology. She does not feel like she has got constipation but rather diarrhea and has responded very well to the MiraLAX previously given. We may hold off on giving further dosages until we evaluate the upper GI tract. We will continue to watch the patient's white blood cell count and see if this improves over time. 05/11/17--nausea and vomiting appeared to be no better, awaiting gastric emptying study to be done tomorrow morning after n.p.o. from midnight on. We will try the patient on a cardiac diet just to see if she was able to keep any of this down. 05/12/17--nausea and vomiting slightly better, patient was able to tolerate the gastric emptying study without vomiting. We will see if Reglan helps much. 05/13/17--Reglan appears to be helping a great deal, I have reminded the patient that she can discontinue this periodically to see how much it is helping especially she is concerned over the side effects. Current Visit: Yes (3) Screening for colorectal cancer Status: Acute Assessment and plan: This patient has been previously scoped for the last [address] [facility] and I would like to obtain these old records for our evaluation. She may need a repeat colonoscopy anywhere between 4 and 9 years from now. Further recommendations post evaluation of their findings at that time. It sounds that the patient did not have any polyps obtained. 05/11/17--Her colonoscopy was last performed on 06/21/14 and demonstrated pelvic adhesions and diverticulosis on the left side of the colon but otherwise no further polyp disease was noted. Patient was told to return again in 5 years given her prior history of polyp disease. The procedure was done by Dr. Winn over [facility]. Repeat will need to be in June 2019. 05/13/17--Again this patient's next colonoscopy will be needed in 5 years i.e. June 2019 Current Visit: Yes Gastroenterology - PN: Subj Interval history: Doing much better with the IV Reglan, patient is ready to be discharged home today. I have written her prescription for the Reglan elixir 5-10 mg p.o. q. before meals and nightly along with Protonix 40 mg prior to suppertime. Exam (Progress Note) - Constitutional Vitals: Period Temp Pulse Resp BP Sys/Stewart Pulse Ox Last 24 Hr 97.4 F-98.0 F 71-93 18-20 113-158/65-83 95-98 - Head Head exam: Present: normocephalic - Eye Eye exam: Present: EOMI - Respiratory Respiratory exam: Present: clear to auscultation bilaterally - Cardiovascular Cardiovascular exam: Present: regular rate and rhythm - GI/Abdominal GI/Abdominal exam: Present: normal bowel sounds, soft. Absent: distended, guarding, tenderness, rebound - Extremities Exam Extremities exam: Absent: edema - Neurological Exam Neurological exam: Present: alert, oriented X3 - Psychiatric Psychiatric exam: Present: normal affect, normal mood - Skin Skin exam: Present: warm Results - Labs CBC & BMP: 05/12/17 05:56 05/13/17 07:11 Specialty Discharge - Follow Up or Referrals Follow up with: El Green MD [Physician] - (may call as needed. )
--- NOTE | 2017-05-13 21:00 | DUMMY REPORT TO COMPLETE ORDER ---
See report scanned to EMR
== END 2017-05-13 18:25 | disposition home or self-care (01) | DRG 392 ==
LOC: N.ED 16:28 → N.EDINP 16:28 → SUATTDRO 21:55 → N.2E 22:09
PROVIDERS: ADMIT Internal Medicine; ATTEND Internal Medicine